=== PATIENT | male | born 1995 | race Caucasian/White ===

== ENCOUNTER 2023-10-17 18:37 | Emergency (ER) | payer MEDICAID ==
--- NOTE | 2023-10-17 18:58 | ED Physician Documentation ---
History of Present Illness - Stated complaint Stated Complaint: DOG BITE - Chief complaint Chief Complaint: General - History obtained from History obtained from: Patient, Family - Additonal information Additional information: Otherwise healthy 28-year-old gentleman who is not up-to-date on tetanus was bitten by a large dog who is fully immunized at home just prior to arrival with bites on the face, left hip, right shoulder, and the fingertip of the right index finger is missing. PD PAST MEDICAL HISTORY - Past Medical History Past Medical History: No - Past Surgical History Past Surgical History: No - Present Medications Home Medications: Ambulatory Orders Medication Instructions Recorded Confirmed Amox/Clav 875/125 [Augmentin] 1 each PO Q12H #10 tablet 10/17/23 HYDROcod/ACETAM 5/325 [[place] 5/325] 1 - 2 tab PO Q6H PRN #10 tablet 10/17/23 - Allergies Allergies/Adverse Reactions: Allergies Allergy/AdvReac Type Severity Reaction Status Date / Time No Known Drug Allergies Allergy Verified 10/17/23 18:48 - Social History Does the pt smoke?: Yes Smoking Status: Current every day smoker PD ED PE NORMAL - Vitals Vital signs reviewed: Yes - General General: Alert and oriented X 3, No acute distress - HEENT HEENT: Other (Extensive lacerations on the face, the most pressing being a through and through laceration including the vermilion border measuring 2 cm of the right lower lip) - Neck Neck: Supple, no meningeal sign, No bony TTP - Derm Derm: Other (Large but shallow bite le on the right shoulder and left lateral pelvic area above the pelvis.) - Extremities Extremities: Other (He is missing the tip of the right index finger with exposed bone.) - Neuro Neuro: Alert and oriented X 3 Eye Opening: Spontaneous Motor: Obeys Commands Verbal: Oriented GCS Score: 15 - Psych Psych: Normal mood, Normal affect Results - Vitals Vitals: Vital Signs - 24 hr 10/17/23 10/17/23 18:42 20:47 Temperature 37.3 C 36.2 C L Heart Rate 129 H 98 Respiratory 18 16 Rate Blood Pressure 150/79 H 137/68 H O2 Saturation 100 99 Oxygen O2 Source Room air - Rads (name of study) Three-view x-ray of the right second finger demonstrates a distal amputation Relevant Findings:: Final report received, EMP independent interpretation of test Procedures - Laceration (location) Right index finger partial amputation with exposed bone Length in cm: 2 Wound type: Stellate, Irregular, Exposure of bone Neurovascular status: Sensory intact Anesthesia: Marcaine 0.5% (Digital block with excellent anesthesia) Wound preparation: Hibiclens, Irrigated copiously NS, Debrided extensively (Rongeur used to trim back bone such that it could be covered with a flap without exposed bone) Skin layer closure: Nylon, Size #-0 - enter number (4-0), Sutures - enter # (5) Other: Patient tolerated well, No complications, Neurovascular intact Right cheek Length in cm: 2 Wound type: Curved, Stellate, Into subcut fat Anesthesia: Lidocaine 1% Wound preparation: Hibiclens, Irrigated copiously NS Skin layer closure: Nylon, Interrupted, Size #-0 - enter number (6-0), Sutures - enter # (5) Other: Patient tolerated well, No complications, Neurovascular intact Right lower lip Length in cm: 3 Wound type: Curved, Involvement of free margins of vermilion border Anesthesia: Lidocaine 1% Wound preparation: Hibiclens, Irrigated copiously NS Skin layer closure: Nylon, Other (The vermilion border and skin were closed with 5-0 nylon and the mucosal surface was closed with 5-0 Vicryl) Chin Length in cm: 2.8 Wound type: Linear Anesthesia: Lidocaine 1% Wound preparation: Hibiclens, Irrigated copiously NS Skin layer closure: Nylon, Size #-0 - enter number (5-0) Other: Patient tolerated well, No complications, Neurovascular intact PD Medical Decision Making - ED course ED course: 28-year-old gentleman with extensive lacerations and injuries related to dog bite wounds. He has a partial amputation of the right second finger and multiple lacerations of the face. He also has abrasions on the right shoulder and left hip. Please were notified. Tetanus was updated. He received IV Unasyn, Dilaudid, and Toradol and did need some anxiolysis for the procedure and received 2 mg with IV Ativan with good effect. Departure - Departure Disposition: 01 Home, Self Care Clinical Impression: Amputation of right index finger, Dog bite of multiple sites Condition: Good Record reviewed to determine appropriate education?: Yes Instructions: ED Laceration Hand Follow-Up: Orthopedic Care [Provider Group] - Within 1 week Prescriptions: Amox/Clav 875/125 [Augmentin] 1 each PO Q12H #10 tablet HYDROcod/ACETAM 5/325 [[place] 5/325] 1 - 2 tab PO Q6H PRN #10 tablet PRN Reason: Pain Comments: The sutures on the face should come out in 6 days, you can go to the urgent care in [place] for that. The sutures in the finger should be rechecked in a week in our orthopedics clinic and probably out in 2 weeks. I sent prescriptions electronically to the [facility] in [place]. For wound care all wounds can be washed briefly with soap and water and then covered with bacitracin, and antibiotic ointment be available [id number] and gauze. I am prescribing a short course of narcotic pain medication for you. These are potentially dangerous and addictive medications that should be used carefully. These medications may constipate you. Take an swnb-ptx-masldai stool softener (docusate) twice daily with plenty of water while taking these medications. If you go 24 hours without a bowel movement, take rvmn-jvz-vemdtsf miralax, per package instructions. Do not drink or drive while taking these medications. If you received narcotic or sedating medications while in the emergency departm ent, do not drive for 24 hours. Store this medication in a safe, secure place and out of reach of children. It is a violation of federal law to give or sell this medication to another person or to use in a manner other than prescribed. The ED will not refill narcotic prescriptions, including prescriptions lost or stolen. To dispose of unwanted medications: 1. [facility] provides a [facility] box for medication in pill form only (no liquids) 8:00 am to 4:30 p.m. Thursday-Thursday in the lobby of the [facility], [address] [place] [address]. Empty pills into ziplock bag before disposal. Call [phone] for information. 2.[employer] is a free service available to all [facility] residents. Go to [email or web address] Note that many narcotic pain relievers also contain Tylenol/acetaminophen. Please ensure that your total dose of acetaminophen from all sources does not exceed 3 g (3000 mg) per day. Forms: PCP List, Activity restrictions
[2023-10-17] MEDS: TETANUS/DIPHTHERIA/PERTUSSIS 0.5 ML SYRINGE IM ONE (19:16)
[2023-10-17] MEDS: AMPICILLIN/SULBACTAM 3 GM in SODIUM CHLORIDE 0.9% MINIBAG 100 ML IV STA (19:17)
[2023-10-17] MEDS: BUPIVACAINE 0.5% PF 10 ML VIAL SUBQ STA (19:18)
[2023-10-17] MEDS: HYDROmorphone 1 MG/ML CARPUJECT IVP STA (19:18)
[2023-10-17] MEDS: KETOROLAC 15 MG/ML VIAL IVP STA (19:19)
--- NOTE | 2023-10-17 19:28 | XRAY Report ---
PROCEDURE: Finger(s) RT INDICATIONS: fingertip inj TECHNIQUE: AP hand, 2 views of the second finger(s) acquired. COMPARISON: None. FINDINGS: Bones: Amputation change can be seen involving the distal aspect of the distal phalanx of the second finger. Soft tissues: Associated soft tissue injury is seen. IMPRESSION: Amputation change of the distal aspect of the distal second finger. Reviewed by: Christopher Vick MD on 10/17/2023 6:27 PM BR[place] Approved by: Christopher Vick MD on 10/17/2023 6:27 PM BRY[place] Station ID: [id number]
[2023-10-17] MEDS: LIDOCAINE 1%-EPI 1:100000 10 ML MDV SUBQ STA (19:36)
[2023-10-17] MEDS: LORazepam 2 MG/ML VIAL IVP STA (19:56)
[2023-10-17 21:36] VITALS: BP 122/77; O2SAT 97
== END 2023-10-17 21:27 | disposition home or self-care (01) ==
LOC: ED 18:37
DX: S68.120A Partial traumatic metacarpophalangeal amputation of right index finger, initial encounter (principal); S01.451A Open bite of right cheek and temporomandibular area, initial encounter; S01.551A Open bite of lip, initial encounter; S01.85XA Open bite of other part of head, initial encounter; S40.211A Abrasion of right shoulder, initial encounter; S70.212A Abrasion, left hip, initial encounter; W54.0XXA Bitten by dog, initial encounter; F17.200 Nicotine dependence, unspecified, uncomplicated; Z23 Encounter for immunization
CPT/HCPCS: 12015; 13131; 73140; 90471; 90715; 96365; 96375; 99284; 99285; J1170; J2060

== ENCOUNTER 2023-10-18 17:44 | Emergency (ER) | payer MEDICAID, OTHER ==
[2023-10-18 17:54] VITALS: BP 170/85; O2SAT 99
--- NOTE | 2023-10-18 18:25 | ED Physician Documentation ---
History of Present Illness - Stated complaint Stated Complaint: L SIDE PX - Chief complaint Chief Complaint: Abd Pain - History obtained from History obtained from: Patient, Family - History of Present Illness Timing: Yesterday Pain level max: 5 Pain level now: 5 - Additonal information Additional information: Patient is a 28-year-old male who presents to the emergency department after suffering multiple dog bites yesterday from a cane [place]. He has bruising to the left flank today that his mother is requesting to be evaluated for "internal bleeding". Has no abdominal pain, vomiting, hematuria. No other new or worrisome symptoms from yesterday. No vomiting. No hematemesis. Review of Systems Constitutional: denies: Fever, Chills Nose: denies: Rhinorrhea / runny nose, Congestion Cardiac: denies: Chest pain / pressure Respiratory: denies: Dyspnea, Cough GI: denies: Vomiting, Diarrhea Skin: denies: Rash Musculoskeletal: denies: Neck pain, Back pain Neurologic: denies: Headache PD PAST MEDICAL HISTORY - Past Medical History Past Medical History: No - Past Surgical History Past Surgical History: No - Present Medications Home Medications: Ambulatory Orders Medication Instructions Recorded Confirmed Amox/Clav 875/125 [Augmentin] 1 each PO Q12H #10 tablet 10/17/23 10/18/23 HYDROcod/ACETAM 5/325 [[place] 5/325] 1 - 2 tab PO Q6H PRN #10 tablet 10/17/23 10/18/23 HYDROcod/ACETAM 5/325 [[place] 5/325] 1 - 2 ea PO Q6H PRN #14 tablet 10/18/23 - Allergies Allergies/Adverse Reactions: Allergies Allergy/AdvReac Type Severity Reaction Status Date / Time No Known Drug Allergies Allergy Verified 10/18/23 17:51 - Social History Does the pt smoke?: Yes Smoking Status: Current every day smoker PD ED PE NORMAL - Vitals Vital signs reviewed: Yes - General General: Alert and oriented X 3, No acute distress - HEENT HEENT: Moist mucous membranes - Neck Neck: Supple, no meningeal sign - Cardiac Cardiac: RRR - Respiratory Respiratory: No respiratory distress, Clear bilaterally - Abdomen Abdomen: Soft, Non tender, Non distended, Other (Patient does have extensive bruising to the left flank. There is no abdominal tenderness though.) - Back Back: No CVA TTP, No spinal TTP - Derm Derm: Warm and dry - Neuro Neuro: Alert and oriented X 3 Results - Vitals Vitals: Vital Signs - 24 hr 10/18/23 17:47 Temperature 36.9 C Heart Rate 88 Respiratory 18 Rate Blood Pressure 170/85 H O2 Saturation 99 Oxygen O2 Source Room air PD Medical Decision Making - ED course Complexity details: reviewed old records, considered differential, d/w patient, d/w family ED course: Patient does not have any evidence of internal bleeding. He does have a left flank hematoma. Bedside ultrasound was performed that shows a negative FAST exam of the abdomen. No evidence of splenic injury or kidney injury. Abdomen is soft, nontender nondistended. Recommend that he continue his current medications at home. He does request more pain medication as his finger is causing him pain. This will be prescribed for him. Recommend he continue the antibiotics. No indication for CT scan at this time. Abdomen is soft, nontender nondistended. Patient counseled regarding signs and symptoms for which I believe and urgent re-evaluation would be necessary. Patient with good understanding of and agreement to plan and is comfortable going home at this time This document was made in part using voice recognition software. While efforts are made to proofread this document, sound alike and grammatical errors may occur. Departure - Departure Disposition: 01 Home, Self Care Clinical Impression: Dog bite of multiple sites Hematoma of left flank Qualifiers: Encounter type: initial encounter Qualified Code(s): S30.1XXA - Contusion of abdominal wall, initial encounter Condition: Good Instructions: ED Hematoma, ED Wound Care Follow-Up: your,doctor [Other] Prescriptions: HYDROcod/ACETAM 5/325 [[place] 5/325] 1 - 2 ea PO Q6H PRN #14 tablet PRN Reason: Pain Comments: Your prescription was sent to [facility] in [place]. Please continue your antib iotics at home. Please follow-up as directed yesterday by Dr. Pickens. I am prescribing a short course of narcotic pain medication for you. These are potentially dangerous and addictive medications that should be used carefully. These medications may constipate you. Take an nwfx-nfh-vmlkrys stool softener (docusate) twice daily with plenty of water while taking these medications. If you go 24 hours without a bowel movement, take [id number] miralax, per package instructions. Do not drink or drive while taking these medications. If you received narcotic or sedating medications while in the emergency department, do not drive for 24 hours. Store this medication in a safe, secure place and out of reach of children. It is a violation of federal law to give or sell this medication to another person or to use in a manner other than prescribed. The ED will not refill narcotic prescriptions, including prescriptions lost or stolen. To dispose of unwanted medications: 1. [facility] at [address] [facility]. in [place] has a medication drop box. They accept prescription medications (in pill form) Thursday through Thursday 9:00 a.m. to 5:00 p.m. 2. The [facility] accepts prescription medications (in pill form only) for disposal year round. Call for more information. 3. Contact the [facility] for the next [facility] sponsored prescription drug collection event. , [phone], or [phone]; Forms: PCP List Discharge Date/Time: 10/18/23 18:33
== END 2023-10-18 18:33 | disposition home or self-care (01) ==
LOC: ED 17:44
DX: S30.1XXA Contusion of abdominal wall, initial encounter (principal); W54.0XXA Bitten by dog, initial encounter; F17.200 Nicotine dependence, unspecified, uncomplicated
CPT/HCPCS: 99282; 99283

== ENCOUNTER 2023-10-30 10:35 | Emergency (ER) | payer MEDICAID ==
[2023-10-30 11:06] VITALS: O2SAT 100
--- NOTE | 2023-10-30 11:53 | ED Physician Documentation ---
History of Present Illness - Stated complaint Stated Complaint: RT HAND LAC - Chief complaint Chief Complaint: Laceration - History obtained from History obtained from: Patient - Additonal information Additional information: He presents for suture removal. He was seen a couple weeks ago with some significant dog bite wounds including a traumatic amputation of the tip of the right index finger and facial lacerations. He is not having any significant trouble. He was recommended to follow-up with orthopedics and made an appointment but he had a "family emergency" and had to miss it. PD PAST MEDICAL HISTORY - Past Medical History Past Medical History: No - Past Surgical History Past Surgical History: No - Present Medications Home Medications: Ambulatory Orders Medication Instructions Recorded Confirmed Amox/Clav 875/125 [Augmentin] 1 each PO Q12H #10 tablet 10/17/23 10/18/23 HYDROcod/ACETAM 5/325 [[place] 5/325] 1 - 2 tab PO Q6H PRN #10 tablet 10/17/23 10/18/23 HYDROcod/ACETAM 5/325 [[place] 5/325] 1 - 2 ea PO Q6H PRN #14 tablet 10/18/23 Bacitracin Zinc Oint 1 applic TOP BID #1 each 10/30/23 - Allergies Allergies/Adverse Reactions: Allergies Allergy/AdvReac Type Severity Reaction Status Date / Time No Known Drug Allergies Allergy Verified 10/30/23 11:03 - Social History Does the pt smoke?: Yes Smoking Status: Current every day smoker Does the pt drink ETOH?: Yes ETOH Use: Beer Does the pt have substance abuse?: No - Immunizations Immunizations are current?: Yes - POLST Patient has POLST: No PD ED PE NORMAL - Vitals Vital signs reviewed: Yes - General General: Alert and oriented X 3, No acute distress - HEENT HEENT: Other (5 sutures in the right lower lip, 2 Vicryl and 3 nylon which were removed without issue. No signs of infection. The vermilion border is well- approximated.) - Neuro Neuro: Alert and oriented X 3, Normal speech Results - Vitals Vitals: Vital Signs - 24 hr 10/30/23 10:58 Temperature 37.4 C Heart Rate 98 Respiratory 18 Rate Blood Pressure 171/99 H O2 Saturation 100 Oxygen O2 Source Room air PD Medical Decision Making - ED course ED course: 5 sutures removed from the left lower lip. The index finger had a lot of necrotic clots and material at the tip making it difficult to identify the sutures on initial evaluation. We soaked it and then I did a digital block with plain lidocaine at which point some necrotic material was removed and I was able to identify the sutures and remove them. Departure - Departure Disposition: 01 Home, Self Care Clinical Impression: Amputation of right index finger, Dog bite of multiple sites, Visit for suture removal Condition: Good Record reviewed to determine appropriate education?: Yes Follow-Up: Orthopedic Care [Provider Group] - Within 3 Days Prescriptions: Bacitracin Zinc Oint 1 applic TOP BID #1 each Comments: I still recommend you follow-up with our orthopedic group, call for the next available appointment, I worry that she may need a revision of the fingertip at some point. In the meantime keep it covered with antibiotic ointment and a wrap. 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 Forms: PCP List
[2023-10-30 13:11] VITALS: BP 149/92
== END 2023-10-30 13:00 | disposition home or self-care (01) ==
LOC: ED 10:35
DX: S01.511D Laceration without foreign body of lip, subsequent encounter (principal); S68.110D Complete traumatic metacarpophalangeal amputation of right index finger, subsequent encounter; W54.0XXD Bitten by dog, subsequent encounter
CPT/HCPCS: 99281; 99283

== ENCOUNTER 2023-11-03 15:09 | Outpatient (CLI) | payer MEDICAID ==
--- NOTE | 2023-11-04 13:29 | XRAY Report ---
PROCEDURE: Finger(s) RT INDICATIONS: RIGHT FINGER PAIN TECHNIQUE: PA hand, 2 views of the index finger acquired. COMPARISON: Right finger radiographs 10/17/2023. FINDINGS: Bones: Amputation of the 2nd ray at the level of the distal phalangeal shaft, with increased loss of bone when compared to the radiographs from 10/17/2023. Soft tissues: Diffuse soft tissue edema throughout the index finger with soft tissue injury again no trevon at the distal tip. IMPRESSION: Partial amputation of the 2nd distal phalanx with increased loss of bone when compared to the radiogr aphs from 10/17/2023. Reviewed by: Oc Jones MD on 11/04/2023 1:27 PM PDT Approved by: Oc Jones MD on 11/04/2023 1:27 PM PDT Station ID: [id number]
== END 2023-11-03 15:10 | disposition home or self-care (01) ==
LOC: DI 15:09
PROVIDERS: ATTEND Orthopaedic Surgery
DX: S68.120A Partial traumatic metacarpophalangeal amputation of right index finger, initial encounter (principal)